=== PATIENT | male | born 1955 | race Caucasian/White ===

== ENCOUNTER 2022-12-26 10:01 | Outpatient (OUT) | payer OTHER, SELFPAY ==
[2022-12-26 11:49] LABS: Alanine Aminotransferase 20 U/L (16-63); Albumin Globulin Ratio 1.4; Alkaline Phosphatase 71 U/L (46-116); Anion Gap 13.9; Aspartate Amino Transferase 16 U/L (15-37); BUN Creatinine Ratio 12.5; Bilirubin Total 1.2 mg/dL (0.2-1.0); Calcium 8.4 mg/dL (8.5-10.1); Carbon Dioxide 28.6 mmol/L (21.0-32.0); Chloride 103 mmol/L (98-107); Cholesterol 129 mg/dL (<=200); Estimated GFR (African America >60 (>=60); Estimated GFR (Non-African Ame >60 (>=60); Globulin 2.8 g/dL; Glucose 112 mg/dL (74-106); HDL Cholesterol 66 mg/dL (40-60); Potassium 4.5 mmol/L (3.5-5.1); Sodium 141 mmol/L (136-145); Total Protein 6.8 g/dL (6.4-8.2); Triglycerides 66 mg/dL (<=150); VLDL CHOLESTEROL 13.2 mg/dL
[2022-12-26 12:15] LABS: Prostate Specific Antigen Scrn 0.98 ng/mL (<=4.00)
== END 2022-12-26 10:02 | disposition home or self-care (01) ==
LOC: LAB 10:06
PROVIDERS: Family Provider Internal Medicine; PCP Internal Medicine; Visit Provider Internal Medicine
DX: Z00.00 Encounter for general adult medical examination without abnormal findings (principal); Z12.5 Encounter for screening for malignant neoplasm of prostate
CPT/HCPCS: 36415; 80053; 80061; G0103

== ENCOUNTER 2024-02-05 14:57 | Outpatient (OUT) | payer OTHER, SELFPAY ==
--- OUTSIDE RECORDS SUMMARY | 2024-02-05 15:08 | XMS_ITS | CCD ---
Author Organization [facility] Care Team Providers Care Financial Market Dealer Name Role Phone DR CHAY SIMEON Attending Unavailable DR CHAY SIMEON Consulting Unavailable DR CHAY SIMEON Primary Care Unavailable DR CHAY SIMEON Admitting Unavailable Allergies Allergy Classification Reported Allergen(s) Allergy Type Date of Onset Reaction(s) Facility (1 source) amLODIPine Drug Allergy [facility] Repository (1 source) Furosemide Drug Allergy [facility] Repository Problems Problem Classification Problem Date Documented Da te Episodic/Chronic Other screening for suspected conditions (not mental disorders or infectious disease) (1 source) Encounter for screening for malignant neoplasm of prostate; Translations: [ENC SCREEN MALIG NEOPLASM PROSTATE] Onset: 08-15-2021 Episodic Results Test Name Value Interpretation Reference Range Facil ity LIPID PROFILEon 08-09-2021 CHOL-HDL RATIO NORM SEE BELOW Normal [facility] Comment on above: Result Comment: 3.3 - 4.4 LOW RISK 4.4 - 7.1 AVERAGE RISK 7.1 - 11.0 MODERATE RISK >11.0 HIGH RISK Performed By: #### C MP, LIPID #### [facility] [address] [address] [address] Tim Calderón Cholesterol [Mass/Vol] 162 mg/dL Normal <=200 [facility] Comment on above: Performed By: #### C MP, LIPID #### [facility] [address] [address] [address] Tim Calderón Cholesterol in HDL [Mass/Vol] 66 mg/dL Critically high 40-60 [facility] Comment on above: Performed By: #### C MP, LIPID #### [facility] [address] [address] [address] Tim Calderón Cholesterol in LDL [Mass/Vol] 70.4 mg/dL Normal [facility] Comment on above: Performed By: #### C MP, LIPID #### [facility] [address] [address] [address] Tim Calderón Cholesterol.total/C holesterol in HDL [Mass ratio] 2.5 {ratio} Normal [facility] Comment on above: Performed By: #### C MP, LIPID #### [facility] [address] [address] [address] Tim Calderón HDL NORMAL > or = 60 mg/dl - LO W CARDIOVASCULAR RISK <40 mg/dl - HIGH CARDIOVASCULAR RISK Normal [facility] Comment on above: Performed By: #### C MP, LIPID #### [facility] [address] [place] [address] Dr. Tim Calderón LDL CALC NORMAL SEE BELOW Normal [facility] Comment on above: Result Comment: <100 mg/dl OPTIMAL 100 - 129 mg/dl NEAR OR ABOVE OPTIMAL 130 - 159 mg/dl BORDERLINE HIGH 160 - 189 mg/dl HIGH >190 mg/dl VERY HIGH Performed By: #### C MP, LIPID #### [facility] [address] [place] [address] Dr. Tim Calderón Triglyceride [Mass/Vol] 128 mg/dL Normal <=150 [facility] Comment on above: Performed By: #### C MP, LIPID #### [facility] [address] [place] [address] Dr. Tim Calderón VLDL CALC 25.6 mg/dL Normal [facility] Comment on above: Performed By: #### C MP, LIPID #### [facility] [address] [place] [address] Dr. Tim Calderón PROF 14(COMP METB)on 022 Albumin [Mass/Vol] 4.0 g/dL Normal 3.4-5.0 [facility] Comment on above: Performed By: #### C MP, LIPID #### [facility] [address] [place] [address] Dr. Tim Calderón Albumin/Globulin [Mass ratio] 1.3 {ratio} Normal [facility] Comment on above: Performed By: #### C MP, LIPID #### [facility] [address] [place] [address] Dr. Tim Calderón ALP [Catalytic activity/Vol] 72 U/L Normal 46-116 [facility] Comment on above: Performed By: #### C MP, LIPID #### [facility] [address] [place] [address] Dr. Tim Calderón ALT [Catalytic activity/Vol] 35 U/L Normal 16-63 [facility] Comment on above: Performed By: #### C MP, LIPID #### [facility] [address] [place] [address] Dr. Tim Calderón Anion gap [Moles/Vol] 12.3 mmol/L Normal [facility] Comment on above: Performed By: #### C MP, LIPID #### [facility] [address] [place] [address] Dr. Tim Calderón AST [Catalytic activity/Vol] 25 U/L Normal 15-37 [facility] Comment on above: Performed By: #### C MP, LIPID #### [facility] [address] [place] [address] Dr. Tim Calderón Bilirubin [Mass/Vol] 0.8 mg/dL Normal 0.2-1.0 [facility] Comment on above: Performed By: #### C MP, LIPID #### [facility] [address] [place] [address] Dr. Tim Calderón Calcium [Mass/Vol] 9.3 mg/dL Normal 8.5-10.1 [facility] Comment on above: Performed By: #### C MP, LIPID #### [facility] [address] [place] [address] Dr. Tim Calderón Chloride [Moles/Vol] 103 mmol/L Normal 98-107 [facility] Comment on above: Performed By: #### C MP, LIPID #### [facility] [address] [place] [address] Dr. Tim Calderón CO2 [Moles/Vol] 28.5 mmol/L Normal 21.0-32.0 [facility] Comment on above: Performed By: #### C MP, LIPID #### [facility] [address] [place] [address] Dr. Tim Calderón Creatinine [Mass/Vol] 0.84 mg/dL Normal 0.70-1.30 [facility] Comment on above: Performed By: #### C MP, LIPID #### [facility] [address] [place] [address] Dr. Tim Calderón EGFR-AF UKRAINIAN >60 Normal >=60 [facility] Comment on above: Performed By: #### C MP, LIPID #### [facility] [address] [address] [address] Tim Calderón EGFR-NON AF UKRAINIAN >60 Normal >=60 [facility] Comment on above: Performed By: #### C MP, LIPID #### [facility] [address] [place] [address] Dr. Tim Calderón Globulin (S) [Mass/Vol] 3.2 g/dL Normal [facility] Comment on above: Performed By: #### C MP, LIPID #### [facility] [address] [place] [address] Dr. Tim Calderón Glucose [Mass/Vol] 126 mg/dL Critically high 74-106 [facility] Comment on above: Performed By: #### C MP, LIPID #### [facility] [address] [place] [address] Dr. Tim Calderón Potassium [Moles/Vol] 4.8 mmol/L Normal 3.5-5.1 [facility] Comment on above: Performed By: #### C MP, LIPID #### [facility] [address] [place] [address] Dr. Tim Calderón Protein [Mass/Vol] 7.2 g/dL Normal 6.4-8.2 [facility] Comment on above: Performed By: #### C MP, LIPID #### [facility] [address] [place] [address] Dr. Tim Calderón Sodium [Moles/Vol] 139 mmol/L Normal 136-145 [facility] Comment on above: Performed By: #### C MP, LIPID #### [facility] [address] [place] [address] Dr. Tim Calderón Urea nitrogen [Mass/Vol] 10.0 mg/dL Normal 7.0-18.0 [facility] Comment on above: Performed By: #### C MP, LIPID #### [facility] [address] [place] [address] Dr. Tim Calderón Urea nitrogen/Creatinine [Mass ratio] 11.9 mg/mg Normal [facility] Comment on above: Performed By: #### C MP, LIPID #### [facility] [address] [place], [place] [address] Dr. Tim Calderón Encounters Encounter Date Encounter Type Care Provider Facility Start: 08-15-2021 Encounter for genera l adult medical examination without abnormal findings DR CHAY SIMEON [facility] Start: 08-09-2021 End: 08-10-[address] CHAY SIMEON Facility:[facility] Start: 08-09-2021 End: 08-10-2021 Encounter for general adult medical examination without abnormal findings DR CHAY SIMEON Facility:[facility] Procedures Date Procedure Procedure Detail Performing Clinician Start: 08-09-[address] CHAY ESPARZA Comment on above: Performed By: #### P SASC #### [facility] [address] [place] [address] Dr. Tim Calderón Payers Date Payer Category Payer Unknown [id number] 1955 Unknown [id number] Summary Purpose Family History No Family History Records Found Advance Directives No Advanced Directives Records Found Additional Source Comments (unrecognized sect ion and content) No Status Records Found INFORMATION SOURCE (unrecogn ized section and content) DATE CREATED AUTHOR 08/16/2021 [facility] FOR RECORDS PERTAINING TO PATIENTS WHO ARE OR HAVE BEEN ENROLLED IN A CHEMICAL DEPENDENCY/SUBSTANCEABUSE PROGRAM, SOME INFORMATION MAY BE OMITTED. This clinical summary was aggregated from multiple sources. Caution should be exercised in using it in the provision of clinical care. This summary normalizes information from multiple sources, and as a consequence, information in this document may materially change the coding, format and clinical context of patient data. In addition, data may be omitted in some cases. CLINICAL DECISIONS SHOULD BE BASED ON THE PRIMARY CLINICAL RECORDS. [employer] [facility]. provides no warranty or guarantee of the accuracy or completeness of information in this document.
[2024-02-05 16:04] LABS: Alanine Aminotransferase 23 U/L (16-63); Albumin Globulin Ratio 1.4; Albumin Level 3.8 g/dL (3.4-5.0); Alkaline Phosphatase 74 U/L (46-116); Anion Gap 9.9; Aspartate Amino Transferase 16 U/L (15-37); BUN Creatinine Ratio 12.2; Calcium 8.6 mg/dL (8.5-10.1); Carbon Dioxide 29.4 mmol/L (21.0-32.0); Chloride 102 mmol/L (98-107); Chol HDL Ratio 2.4; Cholesterol 161 mg/dL (<=200); Estimated GFR (African America >60 (>=60 mL/min/1.73m^2); Estimated GFR (Non-African Ame >60 (>=60 mL/min/1.73m^2); Globulin 2.7 g/dL; Glucose 121 mg/dL (74-106); HDL Cholesterol 67 mg/dL (40-60); Potassium 4.3 mmol/L (3.5-5.1); Sodium 137 mmol/L (136-145); Total Protein 6.5 g/dL (6.4-8.2); Triglycerides 92 mg/dL (<=150); VLDL CHOLESTEROL 18.4 mg/dL
[2024-02-05 16:16] LABS: Prostate Specific Antigen Scrn 0.66 ng/mL (<=4.00)
== END 2024-02-05 14:58 | disposition home or self-care (01) ==
LOC: LAB 14:58
PROVIDERS: Family Provider Internal Medicine; PCP Internal Medicine; Visit Provider Internal Medicine
DX: Z00.00 Encounter for general adult medical examination without abnormal findings (principal); I10 Essential (primary) hypertension; Z13.220 Encounter for screening for lipoid disorders; Z12.5 Encounter for screening for malignant neoplasm of prostate
CPT/HCPCS: 36415; 80053; 80061; G0103

== ENCOUNTER 2024-10-26 08:43 | Emergency (ER) | payer OTHER, SELFPAY ==
[2024-10-26 08:49] VITALS: BP 184/96; PULSE 72; TEMP 36.9; O2SAT 98; BMI 30.4
--- OUTSIDE RECORDS SUMMARY | 2024-10-26 08:51 | XMS_ITS | CCD ---
Author Organization [facility] Care Team Providers Care Solar System Installer Name Role Phone DR CHAY SIMEON Attending Unavailable BLANCO, DR CARTWRIGHT Consulting Unavailable DR CHAY SIMEON Primary Care Unavailable DR CHAY SIMEON Admitting Unavailable Shayy Meza APRN Attending Provider NON STAFF Primary Care Provider Unavailabl e Allergies Allergy Classification Reported Allergen(s) Allergy Type Date of Onset Reaction(s) Facility (1 source) amLODIPine Drug Allergy [facility] (1 source) Furosemide Drug Allergy [facility] Medications Current Medications Medication Drug Class(es) Dates Sig (Normalized) Sig (Original) carvedilol 25 mg oral tablet (2 sources) alpha-Adrenergic Faiza, beta-Adrenergic Faiza Start: 10-25-2024 take 1 tablet by mouth twice daily 168 hr cloNIDine 0.37212 mg/hr transdermal system (2 sources) Central alpha-2 Adrenergic Agonist Start: 10-25-2024 traMADol hydrochloride 50 mg oral tablet (2 sources) Opioid Agonist Start: 10-25-2024 take 1 tablet by mouth every eight hours as needed for pain valsartan 320 mg oral tablet (2 sources) Angiotensin 2 Receptor Faiza Start: 10-25-2024 take 1 tablet by mouth once daily verapamil hydrochloride 240 mg extended release oral tablet (2 sources) Calcium Channel Faiza Start: 10-25-2024 take 1 tablet by mouth once daily in the morning Problems Problem Classification Problem Date Documented Da te Episodic/Chronic Fracture of upper limb (4 sources) Fracture of unspecified carpal bone, left wrist, initial encounter for closed fracture; Translations: [Fracture of left wrist] 10-25-2024 Episodic Other injuries and conditions due to external causes (2 sources) Injury of left wrist; Translations: [Unspecified injury of left wrist, hand and finger(s), initial encounter] 10-25-2024 Episodic Other screening for suspected conditions (not mental disorders or infectious disease) (1 source) Encounter for screening for malignant neoplasm of prostate; Translations: [ENC SCREEN MALIG NEOPLASM PROSTATE] Onset: 08-15-2021 Episodic Results Test Name Value Interpretation Reference Range Facility X-ray reportOrdered By: Chay Post on 10-25-2024 Study report [facility] [address] [place] [address] XRay Report Signed Patient: Lamont Dougherty MR#: [id number] : 1955 Acct:[id number] Age/Sex: 69 / M ADM Date: 5 Loc: XDUCLY Room: Type: [facility] Attending Dr: Shayy Meza APRN, DIRECTOR OF SUPPLY CHAIN-C Copies to: Shayy Meza APRN~ Ordering Provider: Shayy Meza APRN Date of Service: 10/25/24 XR/XR wrist LT min 3V*: LEFT WRIST INJURY XR wrist LT min 3V* 10/25/2024 6:54 PM SIGNS AND SYMPTOMS: Injury to left wrist with pain and swelling, limited range of motion PROTOCOL: Frontal, lateral, and oblique radial graphs of the left wrist COMPARISON: None FINDINGS: There is significant degenerative change at the first metacarpal junction. Periventricular calcifications are present. The radiocarpal joint and carpal rows are preserved. There is cortical irregularity along the dorsal aspect of the triquetrum suggesting a minimally displaced fracture. There is accompanyingbony fragment seen dorsally on lateral view with adjacent soft tissue swelling. XR/XR wrist LT min 3V* IMPRESSION: Findings suggest a mildly displaced fracture of the dorsum of the triquetrum with accompanying dorsal soft tissue swelling. Severe degenerative changes are noted at the first carpal metacarpal junction. Impression dictated by: Chay Post M.D. 10/25/2024 7:02 PM Dictation Location: [place] [address] Transcribed By: [facility] 10/25/241901 Dictated By: Chay Post II, MD 10/25/24 2388 Signed By: 10/25/241901 [facility] Work Phone: LIPID PROFILEon 08-09-2021 CHOL-HDL RATIO NORM SEE BELOW Normal [facility] Comment on above: Result Comment: 3.3 - 4.4 LOW RISK 4.4 - 7.1 AVERAGE RISK 7.1 - 11.0 MODERATE RISK >11.0 HIGH RISK Performed By: #### C MP, LIPID #### [facility] [address] [address] [address] Tim Calderón Cholesterol [Mass/Vol] 162 mg/dL Normal <=200 [facility] Comment on above: Performed By: #### C MP, LIPID #### [facility] [address] [address] [address] Tim Calderón Cholesterol in HDL [Mass/Vol] 66 mg/dL Critically high 40-60 [facility] Comment on above: Performed By: #### C MP, LIPID #### [facility] [address] [address] [address] Tim Calderón Cholesterol in LDL [Mass/Vol] 70.4 mg/dL Normal [facility] Comment on above: Performed By: #### C MP, LIPID #### [facility] [address] [address] [address] Tim Calderón Cholesterol.total/C holesterol in HDL [Mass ratio] 2.5 {ratio} Normal [facility] Comment on above: Performed By: #### C MP, LIPID #### [facility] [address] [address] [address] Tim Calderón HDL NORMAL > or = 60 mg/dl - LO W CARDIOVASCULAR RISK <40 mg/dl - HIGH CARDIOVASCULAR RISK Normal [facility] Comment on above: Performed By: #### C MP, LIPID #### [facility] [address] [address] [address] Tim Calderón LDL CALC NORMAL SEE BELOW Normal [facility] Comment on above: Result Comment: <100 mg/dl OPTIMAL 100 - 129 mg/dl NEAR OR ABOVE OPTIMAL 130 - 159 mg/dl BORDERLINE HIGH 160 - 189 mg/dl HIGH >190 mg/dl VERY HIGH Performed By: #### C MP, LIPID #### [facility] [address] [address] [address] Tim Calderón Triglyceride [Mass/Vol] 128 mg/dL Normal <=150 [facility] Comment on above: Performed By: #### C MP, LIPID #### [facility] [address] [place] [address] Dr. Tim Calderón VLDL CALC 25.6 mg/dL Normal [facility] Comment on above: Performed By: #### C MP, LIPID #### [facility] [address] [place] [address] Dr. Tim Calderón PROF 14(COMP METB)on 022 Albumin [Mass/Vol] 4.0 g/dL Normal 3.4-5.0 [facility] Comment on above: Performed By: #### C MP, LIPID #### [facility] [address] [place] [address] Dr. Tim Calderón Albumin/Globulin [Mass ratio] 1.3 {ratio} Normal [facility] Comment on above: Performed By: #### C MP, LIPID #### [facility] [address] [place] [address] Dr. Tim Calderón ALP [Catalytic activity/Vol] 72 U/L Normal 46-116 [facility] Comment on above: Performed By: #### C MP, LIPID #### [facility] [address] [place] [address] Dr. Tim Calderón ALT [Catalytic activity/Vol] 35 U/L Normal 16-63 [facility] Comment on above: Performed By: #### C MP, LIPID #### [facility] [address] [place] [address] Dr. Tim Calderón Anion gap [Moles/Vol] 12.3 mmol/L Normal [facility] Comment on above: Performed By: #### C MP, LIPID #### [facility] [address] [place] [address] Dr. Tim Calderón AST [Catalytic activity/Vol] 25 U/L Normal 15-37 [facility] Comment on above: Performed By: #### C MP, LIPID #### [facility] [address] [place] [address] Dr. Tim Calderón Bilirubin [Mass/Vol] 0.8 mg/dL Normal 0.2-1.0 [facility] Comment on above: Performed By: #### C MP, LIPID #### [facility] [address] [place] [address] Dr. Tim Calderón Calcium [Mass/Vol] 9.3 mg/dL Normal 8.5-10.1 [facility] Comment on above: Performed By: #### C MP, LIPID #### [facility] [address] [place] [address] Dr. Tim Calderón Chloride [Moles/Vol] 103 mmol/L Normal 98-107 [facility] Comment on above: Performed By: #### C MP, LIPID #### [facility] [address] [place] [address] Dr. Tim Calderón CO2 [Moles/Vol] 28.5 mmol/L Normal 21.0-32.0 [facility] Comment on above: Performed By: #### C MP, LIPID #### [facility] [address] [place] [address] Dr. Tim Calderón Creatinine [Mass/Vol] 0.84 mg/dL Normal 0.70-1.30 [facility] Comment on above: Performed By: #### C MP, LIPID #### [facility] [address] [place] [address] Dr. Tim Calderón EGFR-AF LIBERIAN >60 Normal >=60 [facility] Comment on above: Performed By: #### C MP, LIPID #### [facility] [address] [place] [address] Dr. Tim Calderón EGFR-NON AF LIBERIAN >60 Normal >=60 [facility] Comment on above: Performed By: #### C MP, LIPID #### [facility] [address] [place] [address] Dr. Tim Calderón Globulin (S) [Mass/Vol] 3.2 g/dL Normal [facility] Comment on above: Performed By: #### C MP, LIPID #### [facility] [address] [place] [address] Dr. Tim Calderón Glucose [Mass/Vol] 126 mg/dL Critically high 74-106 [facility] Comment on above: Performed By: #### C MP, LIPID #### [facility] [address] [address] [address] Tim Calderón Potassium [Moles/Vol] 4.8 mmol/L Normal 3.5-5.1 [facility] Comment on above: Performed By: #### C MP, LIPID #### [facility] [address] [address] [address] Tim Calderón Protein [Mass/Vol] 7.2 g/dL Normal 6.4-8.2 [facility] Comment on above: Performed By: #### C MP, LIPID #### [facility] [address] [place] [address] Dr. Tim Calderón Sodium [Moles/Vol] 139 mmol/L Normal 136-145 [facility] Comment on above: Performed By: #### C MP, LIPID #### [facility] [address] [place] [address] Dr. Tim Calderón Urea nitrogen [Mass/Vol] 10.0 mg/dL Normal 7.0-18.0 [facility] Comment on above: Performed By: #### C MP, LIPID #### [facility] [address] [place] [address] Dr. Tim Calderón Urea nitrogen/Creatinine [Mass ratio] 11.9 mg/mg Normal [facility] Comment on above: Performed By: #### C MP, LIPID #### [facility] [address] [place] [address] Dr. Tim Calderón Vital Signs Date Time Vital Sign Value Performing Clinician Faci lity 10-25-2024 18:36-0400 Body height 172.72 cm Shayy Meza BRINE PLANT OPERATOR Work Phone: [facility] 10-25-2024 18:36-0400 Body mass index (BMI) [Ratio] 30.1 kg/m2 Shayy Meza [employer]INE PLANT OPERATOR Work Phone: [facility] 10-25-2024 18:36-0400 Body temperature 98.3 [degF] Shayy Meza BRINE PLANT OPERATOR Work Phone: [facility] 10-25-2024 18:36-0400 Body weight 89.92 kg Shayy Meza BRINE PLANT OPERATOR Work Phone: [facility] 10-25-2024 18:36-0400 Diastolic blood pressure 115 mm[Hg] Shayy Meza BRINE PLANT OPERATOR Work Phone: [facility] 10-25-2024 18:36-0400 Heart rate 73 /min Shayy Meza [employer]INE PLANT OPERATOR Work Phone: [facility] 10-25-2024 18:36-0400 SaO2% (BldA) [Mass fraction] 95 % Shayy Meza BRINE PLANT OPERATOR Work Phone: [facility] 10-25-2024 18:36-0400 Systolic blood pressure 208 mm[Hg] Shayy Meza BRINE PLANT OPERATOR Work Phone: [facility] Encounters Encounter Date Encounter Type Care Provider Facility Start: 10-25-2024 End: 10-25-2024 ambulatory NON STAFF [facility] Work Phone: Start: 10-25-2024 End: 10-25-2024 Patient encounter procedure Shayy Meza BRINE PLANT OPERATOR -[facility] Work Phone: Start: 08-15-2021 Encounter for genera l adult medical examination without abnormal findings DR CHAY SIMEON [facility] Start: 08-09-2021 End: 08-10-[address] CHAY SIMEON Facility:[facility] Start: 08-09-2021 End: 08-10-2021 Encounter for general adult medical examination without abnormal findings DR CHAY SIMEON Facility:[facility] Procedures Date Procedure Procedure Detail Performing Clinician Start: 10-25-2024 Plain X-ray of left wrist Shayy Meza [employer]INE PLANT OPERATOR Work Phone: Start: 08-09-[address] CHAY ESPARZA Comment on above: Performed By: #### P [facility] #### [facility] [address] [address] [address] Tim Calderón Plan of Treatment Date Care Activity Detail Author XR Wrist - left GE 3 Views [facility] Payers Date Payer Category Payer Unknown [id number] 1955 Unknown [id number] Unknown [employer] [id number] Social History Date Type Detail Facility Tobacco smoking stat us MSIS Unknown if ever smoked [facility] Work Phone: Sex Male (finding) [facility] Start: 1955 Sex Assigned At Male F [facility] Evaluation note 10-25-2024 Note Date & Type Note Facility 10-25-2024 Evaluation note Diagnosis Onset Date Resolution Left wrist fracture acute [facility] 2024 6:35pm [facility] Work Phone: Evaluation note Note Date & Type Note Facility Evaluation note Diagnosis Onset Date Resolution Left wrist fracture acute [facility] 2024 6:35pm [facility] Work Phone: Reason for referral (narrative) Note Date & Type Note Facility Reason for referral (narrative) No reason for referral information available [facility] Work Phone: Summary Purpose Family History No Family History Records Found Advance Directives Advance Directive Response Recorded Date/ Time Advance Directives No October 6:33pm Chief Complaint and Reason for Visit Chief Complaint Admit Date Left wrist injury October 25, 2024 6:35pm Reason for Visit Admit Date Left wrist fracture October 25, 2024 6:35pm Additional Source Comments (unrecognized sect ion and content) No Status Records Found INFORMATION SOURCE (unrecogn ized section and content) DATE CREATED AUTHOR 08/16/2021 [facility] Care Teams (unrecognized sec tion and content) Team Status: Active Member Role Status Dates NON STAFF Primary Care Provider Active Team Status: Inactive Member Role Status Dates Shayy Meza APRN DIRECTOR OF SUPPLY CHAIN-[place] Attending Provider Active Start: October End: October 25, 2024 NON STAFF Primary Care Provider Active Start: October 25, 2024 End: October 25, 2024 Team Status: Active Member Role Status Dates NON STAFF Primary Care Provider Active Start: October 25, 2024 Sahyy Meza APRN DIRECTOR OF SUPPLY CHAIN-C Attending Provider Active Start: October Team Status: Inactive Member Role Status Dates NON STAFF Primary Care Provider Active Start: October 25, 2024 End: October 25, 2024 Shayy Meza APRN DIRECTOR OF SUPPLY CHAIN-C Attending Provider Active Start: October End: October 25, 2024 Goals (unrecognized section and content) Goals may be documented in a n alternate sectionGoals may be documented in an alternate section FOR RECORDS PERTAINING TO PATIENTS WHO ARE [...] BE BASED ON THE PRIMARY CLINICAL RECORDS. [facility] [employer], [facility]. provides no warranty or guarantee of the accuracy or completeness of information in this document.
--- NOTE | 2024-10-26 09:02 | ED_ITS ---
HPI HPI - General Adult General Chief complaint: Extremity Injury, Upper Stated complaint: FALL L WRIST INJURY Time Seen by Provider: 10/26/24 08:53 Source: patient Mode of arrival: walk-in History of Present Illness HPI narrative: 69-year-old male presents for pain in his left wrist. He states he fell yesterday and broke it. A splint was applied at an urgent care center and he was prescribed Ultram but it does not seem to be helping. No other injury was sustained. He does not know what bone was broken. He was referred to an orthopedist. Related Data Home Medications ?Medication ?Instructions ?Recorded ?Confirmed carvedilol 25 mg tablet mg 10/26/24 clonidine 0.2 mg/24 hr weekly 10/26/24 transdermal patch valsartan 320 mg tablet mg 10/26/24 verapamil 240 mg tablet,extended mg PO 10/26/24 release Previous Rx's ?Medication ?Instructions ?Recorded hydrocodone 5 mg-acetaminophen 325 1 tab PO Q6H PRN pa in 5 days #20 10/26/24 mg tablet tabs Allergies Allergy/AdvReac Type Severity Reaction Status Date / Time No Known Drug Allergies Allergy Verified 10/26/24 08:48 Opioid HPI Opioid Management Most Recent Opioid Data: Last Pain Scale 9 Today, 09:10 Last MAR Pain Assessment Today, 09:10 Review of Systems ROS Narrative A ten point review of systems is negative except as noted above. PFSH PFSH Social History Little interest or pleasure in doing things: not at all Feeling down, depressed, or hopeless: not at all Exam Narrative Exam Narrative: Nurses note and vital signs reviewed and patient is not hypoxic. General: The patient appears in no acute distress. He is sitting in a chair. Skin: Warm, dry, no pallor noted. There is no rash noted. Head: Normocephalic, atraumatic Eye: Normal conjunctiva, no drainage Ears, Nose, Mouth, and Throat: oral mucosa is moist. Nares patent. Cardiovascular: Regular Rate and Rhythm Respiratory: Patient is in no distress, no accessory muscle use, lungs are clear to auscultation, no wheezing, rales or rhonchi Back: non-tender GI: Nontender Musculoskeletal: Splint present on his left wrist Neurological: A&O, normal speech Psychiatric: Cooperative Constitutional Vital Signs, click to edit/add: Last Vital Signs Temp 98.4 F 09/17/25 08:49 Pulse 72 10/26/24 08:49 Resp 16 10/26/24 08:49 BP 184/96 H 10/26/24 08:49 Pulse Ox 98 10/26/24 08:49 O2 Del Method Room Air 10/26/24 08:49 Course Vital Signs Vital signs: Vital Signs Temperature 98.4 F 10/26/24 08:49 Pulse Rate 72 10/26/24 08:49 Respiratory Rate 16 10/26/24 08:49 Blood Pressure 184/96 H 10/26/24 08:49 Pulse Oximetry 98 10/26/24 08:49 Oxygen Delivery Method Room Air 10/26/24 08:49 Temperature 98.4 F 10/26/24 08:49 Pulse Rate 72 10/26/24 08:49 Respiratory Rate 16 10/26/24 08:49 Blood Pressure 184/96 H 10/26/24 08:49 Pulse Oximetry 98 10/26/24 08:49 Oxygen Delivery Method Room Air 10/26/24 08:49 Medical Decision Making MDM Narrative Medical decision making narrative: I obtained records from the urgent care. They were not specific on which bone was fractured. He has a splint on and was already referred to orthopedics and he is prescribed [place]. Treatment diagnosis and follow-up were discussed with the patient. Differential Diagnosis Differential Diagnosis: Wrist fracture, sprain Discharge Plan Discharge Chief Complaint: Extremity Injury, Upper Clinical Impression: Left wrist pain Patient Disposition: Home, Self-Care Time of Disposition Decision: 09:27 Condition: Good Mode of Transportation: Private Vehicle Prescriptions / Home Meds: New hydrocodone-acetaminophen 5-325 mg tablet 1 tab PO Q6H PRN (Reason: pain) 5 Days Qty: 20 0RF No Action carvedilol 25 mg tablet clonidine 0.2 mg/24 hr patch weekly valsartan 320 mg tablet verapamil 240 mg tablet extended release PO Print Language: Venezuelan Instructions: Wrist Fracture in Adults (ED) Referrals: CHAY SIMEON [Primary Care Provider, Family Practice] - 1 week
[2024-10-26] MEDS: KETOROLAC TROMETHAMINE 60 MG/2 ML VIAL IM (09:10)
== END 2024-10-26 09:39 | disposition home or self-care (01) ==
PROVIDERS: Emergency Provider Emergency Medicine; Family Provider Internal Medicine; PCP Internal Medicine
DX: M25.532 Pain in left wrist (principal)
CPT/HCPCS: 96372; 99284; J1885